=== PATIENT | female | born 1995 | race Caucasian/White ===

== ENCOUNTER 2021-10-04 07:05 | Inpatient (IN) | payer BC ==
[~2021-10-04 07:05] MED LIST: Meropenem 500 MG SDV ONE; cefOXitin 2 GM Vial ONE; fentaNYL 250 MCG/5 ML SDV ONE
[2021-10-04] MEDS ORDERED: Glycopyrrolate 0.2 MG/ML 5 ML MDV ONE (07:06)
[2021-10-04] MEDS ORDERED: Succinylcholine 200 MG/10 ML MDV ONE (07:06)
[2021-10-04] MEDS ORDERED: Propofol 200 MG/20 ML SDV ONE (07:06)
[2021-10-04] MEDS ORDERED: Ondansetron 4 MG/2 ML SDV ONE (07:06)
[2021-10-04] MEDS ORDERED: Dexamethasone 4 MG/ML SDV ONE (07:06)
[2021-10-04] MEDS ORDERED: Neostigmine Methylsulfate 1 MG/ML 5 ML Syringe ONE (07:06)
[2021-10-04] MEDS ORDERED: Rocuronium 50 MG/5 ML Vial ONE (07:06)
[2021-10-04] MEDS ORDERED: Lactated Ringers 1,000 ML ONE (07:09)
[2021-10-04] MEDS ORDERED: Acetaminophen 500 MG Tab PO ONE (07:15)
[2021-10-04] MEDS ORDERED: Scopolamine 1.5 MG Transdermal Patch TRDERM SCH (07:15)
[2021-10-04] MEDS ORDERED: Celecoxib 200 MG Cap PO ONE (07:15)
[2021-10-04] MEDS ORDERED: Dextrose 5%-Lactated Ringers 1,000 ML IV SCH (08:15)
[2021-10-04] MEDS ORDERED: cefOXitin 2 GM in Sodium Chloride 0.9% 50 ML IV ONE (08:30)
[2021-10-04] MEDS ORDERED: Magnesium Sulfate 3.5 GM in Sodium Chloride 0.9% 250 ML IV ONE (08:30)
[2021-10-04] MEDS ORDERED: Magnesium Sulfate 3.2 GM in Sodium Chloride 0.9% 100 ML IV SCH (08:30)
[2021-10-04] MEDS ORDERED: Ketamine 500 MG/5 ML MDV IV SCH (08:45)
[2021-10-04] MEDS ORDERED: Ketamine 14 MG in Sodium Chloride 0.9% 19.86 ML IV SCH (08:45)
[2021-10-04] MEDS ORDERED: fentaNYL 250 MCG/5 ML SDV ONE (09:30)
[2021-10-04] MEDS ORDERED: Labetalol 20 MG/4 ML Syringe ONE (09:59)
[2021-10-04] MEDS ORDERED: Glucagon,Human Recombinant 1 MG Vial IM PRN (11:56)
[2021-10-04] MEDS ORDERED: Insulin Lispro 100 Unit/ML 3 ML KwikPen SUBCUT ONE (11:56)
[2021-10-04] MEDS ORDERED: 50% Dextrose in Water 50 ML Syringe IVPUSH PRN (11:56)
[2021-10-04] MEDS ORDERED: hydrOXYzine HCL 100 MG/2 ML SDV IM ONE (12:00)
[2021-10-04] MEDS: Dextrose 5%-Lactated Ringers 1,000 ML IV SCH ×2 (12:00→18:17)
[2021-10-04] MEDS ORDERED: fentaNYL 100 MCG/2 ML SDV IVPUSH ONE (12:00)
[2021-10-04] MEDS ORDERED: HYDROmorphone 1 MG/ML Syringe IV PRN (12:51)
[2021-10-04] MEDS ORDERED: HYDROmorphone 0.5 MG/0.5 ML Syringe IVPUSH PRN (12:51)
[2021-10-04] MEDS ORDERED: Lactated Ringers 1,000 ML IV SCH (13:00)
[2021-10-04] MEDS ORDERED: Cyclobenzaprine 10 MG Tab PO PRN (13:10)
[2021-10-04] MEDS ORDERED: diphenhydrAMINE 50 MG/ML SDV IVPUSH PRN (14:00)
[2021-10-04] MEDS ORDERED: Labetalol 20 MG/4 ML Syringe IVPUSH PRN (14:00)
[2021-10-04] MEDS ORDERED: Acetaminophen 500 MG Tab PO PRN (14:00)
[2021-10-04] MEDS ORDERED: Ondansetron 4 MG/2 ML SDV IVPUSH PRN (14:00)
[2021-10-04] MEDS ORDERED: oxyCODONE 5 MG Tab PO PRN (14:00)
[2021-10-04] MEDS ORDERED: Metoclopramide 10 MG/2 ML SDV IVPUSH PRN (14:00)
[2021-10-04] MEDS ORDERED: Calcium Gluconate 10% 1 GM/10 ML SDV IVPUSH PRN (14:00)
[2021-10-04] MEDS: cefOXitin 2 GM in Sodium Chloride 0.9% 50 ML IV SCH ×2 (15:12→21:01)
[2021-10-04] MEDS: Pantoprazole 40 MG Vial IVPUSH SCH (15:13)
[2021-10-04] MEDS: MVI, Adult with Vitamin K 10 ML, Thiamine 200 MG, Zinc/Copper/Manganese/Selenium 1 ML i... IV SCH ×4 (16:11)
[2021-10-04] MEDS: hydrOXYzine HCL 100 MG/2 ML SDV IM PRN (16:24)
[2021-10-04] MEDS: Insulin Lispro 100 Unit/ML 3 ML KwikPen SUBCUT SCH ×2 (17:02→21:14)
[2021-10-04] MEDS: Acetaminophen 500 MG Tab PO SCH ×2 (17:03→23:32)
[2021-10-04] MEDS: Heparin Sodium 5,000 Units/ML Vial SUBCUT SCH (18:18)
[2021-10-04] MEDS: Topiramate 25 MG Tab PO SCH (20:58)
[2021-10-05] MEDS: cefOXitin 2 GM in Sodium Chloride 0.9% 50 ML IV SCH ×4 (02:33→20:20)
[2021-10-05] MEDS ORDERED: Iopamidol 612 MG/ML 50 ML SDV PO STA (02:40)
[2021-10-05] MEDS: Insulin Lispro 100 Unit/ML 3 ML KwikPen SUBCUT SCH ×2 (04:35→11:06)
[2021-10-05] MEDS: Heparin Sodium 5,000 Units/ML Vial SUBCUT SCH ×2 (05:18→17:59)
[2021-10-05] MEDS ORDERED: Ondansetron 4 MG Tab.DIS PO PRN (06:56)
[2021-10-05] MEDS ORDERED: hydrOXYzine HCl 25 MG Tab PO PRN (06:57)
[2021-10-05] MEDS: hydrOXYzine HCL 100 MG/2 ML SDV IM PRN (07:19)
[2021-10-05] MEDS: Acetaminophen 500 MG Tab PO SCH ×3 (07:27→23:15)
--- NOTE | 2021-10-05 08:31 | PN ---
DATE OF SERVICE: 10/05/2021 SUBJECTIVE: Hina is postop day 1. Her upper GI was normal. Her oral intake was 240. Urine output, was voiding mostly in the hat, a total of 6 times. MARGUERITE drain put out 70 mL of a light pink drainage. She has been up ambulating back and forth to the bathroom and using her incentive spirometer. Pain has been controlled for the past 12 hours with energy protocol. REVIEW OF SYSTEMS: Remainder of review of systems negative for any pertinent positives and negatives. OBJECTIVE: GENERAL: Hina Martinez is a pleasant 26-year-old female, sitting up in the chair. VITAL SIGNS: TPR is 99.3, 90, 18. Blood pressure 118/75. HEENT: Negative. NECK: Supple. HEART: Regular rate and rhythm. LUNGS: Clear. ABDOMEN: Dressings dry and intact. MARGUERITE drain intact. Abdominal binder is on. EXTREMITIES: Without peripheral edema. ASSESSMENT: Diagnostic laparoscopy with: 1. Laparoscopic Malika-en-Y gastric bypass. 2. Liver biopsy. 3. Repair of diaphragmatic hernia. 4. Excision of mediastinal lipoma. Morbid obesity, hepatomegaly, diaphragmatic hernia, mediastinal lipoma. Date of procedure: 10/04/2021. Surgeon: Jay Jay Butcher MD PLAN: 1. Discontinue D5LR. 2. Change IV to lactated Ringer's 100 mL/hour. 3. Discontinue Accu-Cheks. 4. Discontinue metformin. 5. Atarax 50 mg q.4 hours p.r.n. pain. 6. May shower. 7. Communication order for 3 med cups, 1 every 20 minutes or 3 per hour, record at bedside. 8. Discontinue continuous pulse ox. 9. Discontinue telemetry. 10.Step 2 gastric bypass diet without cereal. 11.Continue use of incentive spirometer, and we will evaluate p.r.n. or in a.m. Vinita Preston PA-C /[id number]
[2021-10-05] MEDS: DULoxetine 30 MG Cap PO SCH (08:49)
[2021-10-05] MEDS: Celecoxib 200 MG Cap PO SCH ×2 (08:49→20:20)
[2021-10-05] MEDS: SCOPOLAMINE PATCH CHECK TOP SCH (08:49)
--- NOTE | 2021-10-05 09:39 | CR ---
[facility] HISTORY: Postbariatric surgery FINDINGS: Patient swallowed water-soluble contrast. Upright views of the abdomen show no evidence of extravasation or obstruction. There is a drainage tube in the left upper quadrant IMPRESSION: Status post bariatric surgery No extravasation or obstruction seen
[2021-10-05] MEDS: Lactated Ringers 1,000 ML IV SCH (14:31)
[2021-10-05] MEDS: Pantoprazole 40 MG Vial IVPUSH SCH (15:51)
[2021-10-05] MEDS: MVI, Adult with Vitamin K 10 ML, Thiamine 200 MG, Zinc/Copper/Manganese/Selenium 1 ML i... IV SCH ×4 (15:52)
[2021-10-05] MEDS: traMADol 50 MG Tab PO PRN (16:26)
[2021-10-05] MEDS: Topiramate 25 MG Tab PO SCH (20:20)
[2021-10-06] MEDS: cefOXitin 2 GM in Sodium Chloride 0.9% 50 ML IV SCH ×2 (02:27→08:41)
[2021-10-06] MEDS: Lactated Ringers 1,000 ML IV SCH (02:27)
[2021-10-06] MEDS: Heparin Sodium 5,000 Units/ML Vial SUBCUT SCH (05:58)
[2021-10-06] MEDS: Acetaminophen 500 MG Tab PO SCH (07:47)
[2021-10-06] MEDS: traMADol 50 MG Tab PO PRN (07:52)
--- NOTE | 2021-10-06 08:28 | OR ---
DATE OF PROCEDURE: 10/04/2021 SURGEON: Jay Jay Butcher MD PREOPERATIVE DIAGNOSIS: Morbid obesity. POSTOPERATIVE DIAGNOSES: 1. Morbid obesity. 2. Marked hepatomegaly. 3. Paraesophageal diaphragmatic hernia. 4. Mediastinal lipoma. OPERATIVE PROCEDURE: Diagnostic laparoscopy with: 1. Laparoscopic Malika-en-Y gastric bypass with long limb gastroenterostomy (21109). 2. George-Cut needle liver biopsy (24907). 3. Repair of paraesophageal diaphragmatic hernia (59731). 4. Excision of mediastinal lipoma (19635). ANESTHESIA: General. LEGAL DOCUMENT ASSISTANT: Vinita Preston PA-C INDICATIONS FOR PROCEDURE: This is a 26-year-old female presenting with longstanding morbid obesity and increasingly significant comorbidities. After preoperative evaluation and discussion, she wished to proceed with a gastric bypass procedure. Potential risks including bleeding, infection, leaks from various GI tract closures, problems with bowel obstruction over time, as well as possibility of cardiopulmonary, septic, or hemorrhagic complications leading to were discussed, and the patient wishes to proceed. DETAILS OF PROCEDURE: The patient was taken to the operating room and placed in a supine position. After general endotracheal anesthesia was induced, she was converted to a lithotomy position and abdomen was prepped and draped 15 cm inferior and 5 cm left of the xiphoid process. A transverse incision was made and peritoneal cavity entered under direct vision with an Optiview trocar, inflated to 15 mmHg pressure of CO2. Laparoscope was then reinserted, no underlying trocar insertion site injuries were seen. Following this, bilateral transversus abdominis plane blocks were placed. Five additional trocars were placed across the upper mid abdomen. The liver was noted to be quite enlarged, roughly two to three times its normal volume and quite fatty infiltrated, no gross cirrhosis or portal hypertension was evident. George-Cut needle biopsy was taken from the left lobe of liver. Minimal bleeding from the biopsy sites controlled with electrocautery. The omentum was then divided in the midline up to the level of the transverse colon. This allowed identification of the small bowel to the ligament of Treitz. Small bowel was then traced out 125 cm distal to that point, was divided transversely with a ESEQUIEL stapler. Small bowel was then traced out additional 150 cm where the [id number]-yo-yeuw enteroenterostomy was accomplished with internal firing of the Endo-ESEQUIEL 60 mm stapler. Common opening was then closed transversely with the same stapler and angles anastomosed. Mesenteric defect approximated with some 0 Ethibond stitch along with 4 mL of fibrin sealant. Divided end of the Malika limb was then brought up to the area of the esophagogastric junction via an antecolic approach without significant tension. The liver was then retracted anteriorly. The patient was noted to have a moderate-sized paraesophageal diaphragmatic hernia. The peritoneum overlying this was incised and reflected downward. During the course of the crural dissection, a mediastinal lipoma was encountered and this was excised to facilitate more adequate closure of the crura. Crura repair was accomplished anteriorly with 0 Ethibond sutures reinforced with PTFE pledgets. The gastrointestinal balloon catheter was then inflated with 15 mL and pulled up snugly to the EG junction. Gastric wall of the apex balloon was then marked with electrocautery and the balloon catheter deflated and pulled up in the esophagus. The lesser omental tissue adjacent to the gastric cardia was incised, allowing dissection behind the stomach at that level and pouch formation was initiated with transverse firing of the ESEQUIEL stapler at the level of the cauterized ricardo at gastric cardia and completed with two additional firings of ESEQUIEL stapler up to and through the angle of His. Upon completion of the pouch, both staple lines were noted to be intact. The anvil of a 25 mm EEA stapler was then attached to Milfay sump type tube. The latter was brought down through the mouth and taken out through a small opening in the gastric pouch, allowing the anvil likewise to be pulled down to within the gastric pouch. Divided end of Malika limb was then opened and the main body of EEA stapler passed several centimeters in the lumen of small bowel, brought up the anvil and united with it thus creating the gastrojejunostomy. Upon removal of the stapler, double donuts of mucosa were noted within and small bowel was closed off with a gastric staple line. Gastrojejunostomy was reinforced with some 3-0 Vicryl seromuscular stitch along with fibrin sealant. Leak test was accomplished with injection of 120 mL of air in the gastric pouch while it was submerged with cefoxitin-containing saline solution, no leaks were identified. A single Isaac-Manning drain was then taken out through the left lateral trocar site and positioned adjacent to gastrojejunostomy, from there up into the splenic fossa. The remaining trocars were removed, peritoneal cavity deflated. Incisions were closed with some 4-0 Vicryl skin stitch and drain affixed with 4-0 Vicryl stitch as well. The patient was taken to the recovery room in satisfactory condition. There were no evident complications. Physician Supervisor [employer], Vinita Preston, played an essential role in assisting in this case helping to position the patient, retract structures as needed, as well as suturing and cutting sutures when indicated. Her presence improved patient's safety and decreased the operative time. Jay Jay Butcher MD /[id number]
[2021-10-06] MEDS: DULoxetine 30 MG Cap PO SCH (08:40)
[2021-10-06] MEDS: Celecoxib 200 MG Cap PO SCH (08:40)
[2021-10-06] MEDS: SCOPOLAMINE PATCH CHECK TOP SCH (08:41)
[2021-10-06] MEDS ORDERED: Cyanocobalamin (Vitamin B12) 1,000 MCG/ML SDV IM ONE (09:00)
--- NOTE | 2021-10-06 11:43 | DISCH ---
ADMISSION DIAGNOSES: 1. Morbid obesity. 2. Body mass index 41.8. DISCHARGE DIAGNOSES: Diagnostic laparoscopy with: 1. Laparoscopic Malika-en-Y gastric bypass surgery. 2. Liver biopsy. 3. Repair of diaphragmatic hernia. 4. Excision of mediastinal lipoma. POSTOPERATIVE DIAGNOSES: 1. Morbid obesity. 2. Hepatomegaly. 3. Diaphragmatic hernia. 4. Mediastinal lipoma. Date of procedure 10/04/2021. Surgeon: Jay Jay Butcher MD. HISTORY: Hina Martinez is a pleasant 26-year-old female with longstanding history of morbid obesity and increasing comorbidities. After preoperative evaluation and discussion of possible risks and possible complications, she wished to proceed with surgical procedure. HOSPITAL COURSE: Hina had her surgery on 10/04/2021. She had no operative complications. On postop day #1, she was advanced to a step 2 gastric bypass diet. Her oral intake was adequate. Pain was controlled, and on postop day 2, she was able to be discharged to home. PHYSICAL EXAMINATION: GENERAL: Hina is a pleasant 26-year-old female. VITAL SIGNS: Height is 5 feet 3 inches, weight is 236 pounds, BMI 41.8. TPR 96, 91, 16, blood pressure 133/95. HEENT: Negative. NECK: Supple. HEART: Regular rate and rhythm. LUNGS: Clear. ABDOMEN: Dressings dry and intact. MARGUERITE drain is intact and will be discontinued. EXTREMITIES: Without peripheral edema. DISPOSITION: Discharged to home. CONDITION: Stable and improving. FOLLOWUP APPOINTMENT: With Vinita Preston PA-C, on 10/14/2021 at 10:30 a.m. HOME MEDICATIONS: Atarax 50 mg q.4 hours p.r.n. pain, #30; Zofran ODT 4 mg p.o. q.4 hours p.r.n. nausea; Celebrex 200 mg p.o. b.i.d. scheduled for 2 weeks; Tylenol 1000 mg p.o. q.8 hours scheduled. DIET: Step 2 gastric bypass diet for 3 weeks due to tight anastomosis. Step 2 with no cereal. May start until 10/26/2021. To drink 8 to 10 glasses of water a day and strive for 65 g of protein. ACTIVITY: No lifting greater than 10 pounds for 2 weeks. Walk 6 times daily inside your home. Driving: Do not drive for 1 week. Shower/bathing: May shower. Keep operative site clean and dry. Wear abdominal binder for 2 weeks and then as tolerated. Notify provider if any fever, increased pain, swelling, redness, drainage, nausea, or vomiting. SPECIAL INSTRUCTIONS: 1. Use incentive spirometer 10 times every hour while awake. 2. When driving in the car, walk 3 minutes every hour to avoid blood clots. /[id number]
== END 2021-10-06 10:05 | disposition home or self-care (01) | DRG 403 ==
LOC: JP.SDS 07:05 → JP.MS 07:05 → EDSTATUS 07:15 → JP.MS 11:35
PROVIDERS: ADMIT Surgery; ATTEND Surgery
PROC: 0D164ZA Bypass Stomach to Jejunum, Percutaneous Endoscopic Approach (ICD-10-PCS; principal; 2021-10-04)
PROC: 0FB24ZX Excision of Left Lobe Liver, Percutaneous Endoscopic Approach, Diagnostic (ICD-10-PCS; 2021-10-04)
PROC: 0BQT4ZZ Repair Diaphragm, Percutaneous Endoscopic Approach (ICD-10-PCS; 2021-10-04)
PROC: 0JB63ZZ Excision of Chest Subcutaneous Tissue and Fascia, Percutaneous Approach (ICD-10-PCS; 2021-10-04)
DX: E66.01 Morbid (severe) obesity due to excess calories (principal); Z68.41 Body mass index [BMI] 40.0-44.9, adult; R16.0 Hepatomegaly, not elsewhere classified; K44.9 Diaphragmatic hernia without obstruction or gangrene; D17.1 Benign lipomatous neoplasm of skin and subcutaneous tissue of trunk
CPT/HCPCS: 36415; 74240; 74240-26; 82947; 86850; 86900; 86901; A9270-GY; C9113; J0171; J0330; J0694; J1100; J1170; J1644; J1815; J2020; J2185; J2405; J2704; J2710; J2765; J2795; J3010; J3410; J3411; J3420; J3475; J3490; J7050; J7120; J7121; Q9967